=== PATIENT | female | born 1980 | race African-American/Black ===

== ENCOUNTER 2019-05-30 22:50 | Emergency (ER) | payer OTHER ==
[~2019-05-30] VITALS: Ht 160 cm; Wt 50.8 kg
[2019-05-30 22:50] VITALS: BP 138/83
[~2019-05-30 22:50] MED LIST: ALBUTEROL SULF8.5 GM INH
--- NOTE | 2019-05-30 22:50 | NUR ---
ED Nurse Note: Patient walked in to ED from home c/o SOB x1hr ago. As per EMT, albuterol HHN was given sea captain. Pt has hx of asthma. Stated that she has been using her inhaler but no relief. On O2 @4L via nc, 96%. Denies fever/ chill. Pt placed on wood scaler. ERMD at bedside.
--- NOTE | 2019-05-30 22:55 | NUR ---
ED Nurse Note: IV line established. Blood specimen collected and sent to lab.
--- NOTE | 2019-05-30 22:56 | Emergency Room Report ---
History of Present Illness General Chief Complaint: Asthma Source: Patient Present Illness HPI This is a 38-year-old female with a history of asthma with frequent exacerbation. She was just in the hospital last month for the same thing. She presents with complaint of asthma exacerbation shortness of breath. She said is been ongoing for last couple days but worse tonight. No relief with her inhaler. She does not smoke but states that people around her smokes a lot. Denies any fever chills. Cough is not productive in nature. No chest pain. EMS said she was very tight and in respiratory distress. They put her on albuterol through a nonrebreather and she felt better now. Worse with exertion. Better with rest. No nausea vomiting or diarrhea. Similar symptom in the past. Never been intubated before. Allergies: Coded Allergies: No Known Allergies (Unverified , 01/26/13) Patient History Past Medical History: see triage record, old chart reviewed, asthma Past Surgical History: other Pertinent Family History: none Social History: Denies: smoking Last Menstrual Period: NA Now: No Immunizations: other Reviewed Nursing Documentation: PMH: Agreed; PSxH: Agreed Nursing Documentation-PMH Past Medical History: No History, Except For Hx Cardiac Problems: No Hx Asthma: Yes Hx Cancer: No Hx Gastrointestinal Problems: No Hx Neurological Problems: No Review of Systems Eye: Denies: eye pain, blurred vision ENT: Denies: ear pain, nose congestion, throat swelling Respiratory: Reports: cough, shortness of breath, wheezing Cardiovascular: Denies: chest pain, palpitations Gastrointestinal: Denies: abdominal pain, diarrhea, nausea, vomiting Musculoskeletal: Denies: back pain, joint pain Skin: Denies: rash Neurological: Denies: headache, numbness Endocrine: Denies: increased thirst, increased urine Hematologic/Lymphatic: Denies: easy bruising All Other Systems: negative except mentioned in HPI Physical Exam Vital Signs Date Time Temp Pulse Resp B/P (MAP) Pulse Ox O2 Delivery O2 Flow Rate FiO2 05/30/19 22:48 98.4 130 24 138/83 (101) 96 Nasal Cannula 4.0 Vitals with tachycardia Sp02 EP Interpretation: reviewed, normal General Appearance: alert, moderate distress, thin Head: normocephalic, atraumatic Eyes: bilateral eye PERRL, bilateral eye EOMI ENT: hearing grossly normal, normal pharynx Neck: full range of motion, supple, no meningismus Respiratory: chest non-tender, normal breath sounds, respiratory distress, decreased breath sounds, wheezing Cardiovascular #1: regular rate, rhythm, no murmur, tachycardia Gastrointestinal: normal bowel sounds, non tender, no mass, no organomegaly, no bruit, non-distended Musculoskeletal: back normal, normal range of motion, gait/station normal Psychiatric: mood/affect normal Medical Decision Making Diagnostic Impression: Primary Impression: Asthma attack Qualified Codes: J45.21 - Mild intermittent asthma with (acute) exacerbation ER Course Patient with respiratory distress and asthma exacerbation. Better after breathing treatment. Labs unremarkable. No evidence of ACS, PE, dissection to name a few. Will discharge home. With her frequent exacerbation, advised her to avoid smoking and we will put her on a steroid inhaler also. EKG Diagnostic Results Rate: tachycardiac Rhythm: NSR ST Segments: other - nsst changes Rhythm Strip Diag. Results EP Interpretation: yes Rate: 100 Rhythm: NSR, no PVC's, no ectopy Chest X-Ray Diagnostic Results Chest X-Ray Diagnostic Results : Chest X-Ray Ordered: Yes # of Views/Limited/Complete: 1 View Indication: Shortness of Breath EP Interpretation: Yes Interpretation: no consolidation, no effusion, no pneumothorax, no acute cardiopulmonary disease Impression: No acute disease Electronically Signed by: Bandar Mullins MD Last Vital Signs Date Time Temp Pulse Resp B/P (MAP) Pulse Ox O2 Delivery O2 Flow Rate FiO2 05/30/19 22:48 98.4 130 24 138/83 (101) 96 Nasal Cannula 4.0 Status: improved Disposition: HOME, SELF-CARE Condition: Stable Scripts Fluticasone/Vilanterol (Breo Ellipta 100-25 Mcg INH) 1 Each Blst.w.dev 1 EACH IH BID, #1 EACH Prov: Bandar Mullins MD 05/30/19 Prednisone* (PREDNISONE*) 20 Mg Tablet 40 MG ORAL DAILY, #10 TAB Prov: Bandar Mullins MD 05/30/19 Albuterol Sulfate* (ALBUTEROL SULFATE MDI*) 8.5 Gm Hfa.aer.ad 2 PUFF INH Q4H PRN for cough/wheezing, #1 EA 0 Refills Prov: Bandar Mullins MD 05/30/19 Patient Instructions: Asthma, Adult Additional Instructions: Follow-up with your doctor in 7 days. Avoid second hand smoke. If symptoms worsen. Bandar Mullins MD May 30, 2019 22:56
[2019-05-30] MEDS ORDERED: Ipratropium 0.02% Inh Soln 2.5ml UD HHN ONE (23:00)
[2019-05-30] MEDS ORDERED: Albuterol ud Inhalation HHN ONE (23:00)
[2019-05-30] MEDS ORDERED: Solu-MEDROL 125mg Inj IVP ONE (23:00)
--- NOTE | 2019-05-30 23:00 | NUR ---
ED Nurse Note: RT at bedside for breathing tx.
--- NOTE | 2019-05-30 23:12 | NUR ---
ED Nurse Note: Xray done at bedside.
[2019-05-30 23:27] LABS: BASOPHILS % (AUTO) 1.6 % (0.0-2.0); EOSINOPHILS % (AUTO) 2.4 % (0.0-3.0); HEMATOCRIT 43.5 % (37.0-47.0); HEMOGLOBIN 14.8 G/DL (12.0-16.0); LYMPHOCYTES % (AUTO) 23.1 % (20.0-45.0); MEAN CORPUSCULAR VOLUME 93 FL (80-99); MONOCYTES % (AUTO) 8.2 % (1.0-10.0); NEUTROPHILS % (AUTO) 64.6 % (45.0-75.0); PLATELET COUNT 227 K/UL (150-450); RED CELL DISTRIBUTION WIDTH 12.3 % (11.6-14.8); WHITE BLOOD COUNT 12.7 K/UL (4.8-10.8)
--- NOTE | 2019-05-30 23:30 | NUR ---
ED Nurse Note: Urine specimen collected and sent to lab.
[2019-05-30 23:36] LABS: APPEARANCE,URINE CLEAR; BILIRUBIN, URINE NEGATIVE (NEGATIVE); COLOR,URINE PALE YELLOW; GLUCOSE, URINE (UA) NEGATIVE (NEGATIVE); KETONES,URINE NEGATIVE (NEGATIVE); LEUKOCYTE ESTERASE ,URINE NEGATIVE (NEGATIVE); NITRITE,URINE NEGATIVE (NEGATIVE); PH,URINE 5 (4.5-8.0); PROTEIN,URINE NEGATIVE (NEGATIVE); UROBILINOGEN,URINE 1 MG/DL (0.0-1.0)
[2019-05-30 23:38] LABS: ANION GAP 10 mmol/L (5-15); BLOOD UREA NITROGEN 18 mg/dL (7-18); CALCIUM 9.4 MG/DL (8.5-10.1); CARBON DIOXIDE 27 MMOL/L (21-32); CHLORIDE 104 MMOL/L (98-107); CREATININE 0.7 MG/DL (0.55-1.30); POTASSIUM 4.5 MMOL/L (3.5-5.1); SODIUM 141 MMOL/L (136-145)
[2019-05-30 23:49] LABS: ALANINE AMINOTRANSFERASE 28 U/L (12-78); ALBUMIN 3.4 G/DL (3.4-5.0); ALBUMIN/GLOBULIN RATIO 0.7 (1.0-2.7); ALKALINE PHOSPHATASE 58 U/L (46-116); ASPARTATE AMINO TRANSFERASE 32 U/L (15-37); BILIRUBIN,TOTAL 0.3 MG/DL (0.2-1.0)
[2019-05-30] MEDS ORDERED: PREDNISONE20 MG ORAL (23:58)
[2019-05-30] MEDS ORDERED: BREO ELLIPTA 11 EACH IH (23:58)
[2019-05-30] MEDS ORDERED: ALBUTEROL SULF8.5 GM INH (23:58)
[2019-05-31 00:06] VITALS: BP 124/96
--- NOTE | 2019-05-31 00:06 | NUR ---
ED Nurse Note: Pt cleared by ERMD for discharge. DC instructions/prescription was given and explained to pt and verbalized understanding of teachings. All medical deviecs such as ID band and IV line removed. Pt is AAO x4, ambulatory and left with all personal belongings. Pt will take the bus going home.
--- NOTE | 2019-05-31 10:15 | Diagnostic Imaging Report ---
Indication: Shortness of breath Technique: One view of the chest Comparison: 01/26/2013 Findings: Lungs and pleural spaces are clear. Heart size is normal. No significant change Impression: No acute process
== END 2019-05-31 00:06 | disposition home or self-care (01) ==
LOC: EDBD 22:50 → EMR 23:08
DX: J45.21 Mild intermittent asthma with (acute) exacerbation (principal)
CPT/HCPCS: 36415; 71045; 80053; 80307; 81003; 81025; 83880; 84484; 85025; 93005; 96365; 96375; J2930; J7030; Z7502; 99284

== ENCOUNTER 2020-02-19 03:51 | Emergency (ER) | payer OTHER ==
[~2020-02-19] VITALS: Ht 154.9 cm; Wt 52.2 kg
[~2020-02-19 03:51] MED LIST changes: +BREO ELLIPTA 11 EACH IH; +PREDNISONE20 MG ORAL
--- NOTE | 2020-02-19 03:56 | Emergency Room Report ---
History of Present Illness General Chief Complaint: Dyspnea/Respdistress Source: Patient Present Illness [facility] Disclaimer: Please note that this report is being documented using DRAGON technology. This can lead to erroneous entry secondary to incorrect interpretation by the dictating instrument. HPI: 39-year-old female with history of asthma presents for evaluation of shortness of breath. Symptoms present for the past 2 to 3 days. Reports progressive wheezing and tightness in her chest difficulty breathing that was acutely worse this evening. Has been using her albuterol inhaler with only minor relief. No recent steroid use. Ran out of her inhaler this evening. Tested negative for COVID-19 last week. Denies cough, congestion, fever, chills, sore throat, changes in sense of smell or taste. Denies chest pain, palpitations, nausea, vomiting, diarrhea. PMH: Asthma PSH: Reviewed Allergies: Denied Social Hx: Denied drug or alcohol abuse Allergies: Coded Allergies: No Known Allergies (Unverified , 01/26/13) COVID-19 Screening Contact w/high risk pt: Yes Experienced COVID-19 symptoms?: Yes COVID-19 Testing performed MANAGER OFFICE SERVICES: No Patient History Now: No Nursing Documentation-PMH Past Medical History: No History, Except For Hx Cardiac Problems: No Hx Asthma: Yes Hx Cancer: No Hx Gastrointestinal Problems: No Hx Neurological Problems: No Review of Systems All Other Systems: negative except mentioned in HPI Physical Exam Vital Signs Date Time Temp Pulse Resp B/P (MAP) Pulse Ox O2 Delivery O2 Flow Rate FiO2 02/19/20 03:51 97.3 91 21 126/89 (101) 100 Room Air General: Awake and alert, appears uncomfortable, speaking in 3-4 word sentences HEENT: NC/AT. EOMI. Cardiovascular: RRR. S1 and S2 normal. No murmur appreciated Resp: Tachypnea. Increased work of breathing. Reduced aeration bilaterally and inspiratory next Tory wheezes. Skin: Intact. No abrasions, laceration or rash over the exposed skin MSK: Normal tone and bulk. Moving all extremities. No obvious deformity. Neuro: Awake and alert. Mentating appropriately. Procedures Critical Care Time Critical Care Time Total critical care time: Approximately 31 minutes Due to a high probability of clinically significant, life threatening deterioration, the patient required the highest level of preparedness to intervene emergently and I personally spent this critical care time directly and personally managing the patient. This critical care time included obtaining a history, examining the patient, pulse oximetry, ordering and reviewing studies, ordering treatments, evaluating response to treatment and updating management plan as needed, frequent reassessment and discussion with other providers as well as arranging for ultimate disposition. This critical to care time was performed to assess and manage the high probability of life-threatening deterioration that could result in multiorgan failure. This critical care time is separate from the separately billable procedures and treating other patients. Medical Decision Making Diagnostic Impression: Primary Impression: Acute asthma exacerbation ER Course 39-year-old female with history of asthma presents for worsening shortness of breath. Patient's history most consistent with an acute asthma exacerbation. Placed in negative pressure room and continuous nebulizer treatment ordered. IV steroids given. No infiltrate or pneumothorax identified on chest x-ray. Feeling better after receiving breathing treatments and steroids. Wheezing resolved. Moving good air. No respiratory distress remains. Patient is stable for outpatient follow-up. Will refill inhalers and start on prednisone. Instructed to follow-up with PMD and return with new or worsening symptoms. She understands and agrees with this treatment plan. Chest X-Ray Diagnostic Results Chest X-Ray Diagnostic Results : Chest X-Ray Ordered: Yes # of Views/Limited/Complete: 1 View Indication: Shortness of Breath EP Interpretation: Yes Interpretation: no consolidation, no effusion, no pneumothorax, no acute cardiopulmonary disease Impression: No acute disease Electronically Signed by: Electronically signed by Dr. Abdiaziz Luis MD Last Vital Signs Date Time Temp Pulse Resp B/P (MAP) Pulse Ox O2 Delivery O2 Flow Rate FiO2 02/19/20 03:51 97.3 91 21 126/89 (101) 100 Room Air Disposition: HOME, SELF-CARE Condition: Improved Scripts Albuterol Sulfate (VENTOLIN HFA) 18 Gm Hfa.aer.ad 1 PUFF INH EVERY 6 HOURS, #18 GM 0 Refills Prov: Abdiaziz Luis MD 02/19/20 Fluticasone/Vilanterol (Breo Ellipta 100-25 Mcg INH) 1 Each Blst.w.dev 1 EACH IH BID, #1 EACH Prov: Abdiaziz Luis MD 02/19/20 Prednisone* (PREDNISONE*) 20 Mg Tablet 40 MG ORAL DAILY, #10 TAB Prov: Abdiaziz Luis MD 02/19/20 Abdaiziz Luis MD Feb 19, 2020 03:56
[2020-02-19] MEDS ORDERED: Solu-MEDROL 125mg Inj IVP ONE (04:00)
--- NOTE | 2020-02-19 04:00 | NUR ---
ED Nurse Note: Patient brought in by ambulance RA 66 from home with c/o SOB onset 2 days. Pt reports of wheezing and chest tightness that got worse last night. Pt has history of asthma. Pt is using inhaler at home. Pt denies CP, flu like s/sx, N&V, diarrhea. Pt is AAOX4 and ambulatory. Pt came in with lisha flow o2 satting 100%. HPI: 39-year-old female with history of asthma presents for evaluation of shortness of breath. Symptoms present for the past 2 to 3 days. Reports progressive wheezing and tightness in her chest difficulty breathing that was acutely worse this evening. Has been using her albuterol inhaler with only minor relief. No recent steroid use. Denies cough, congestion, fever, chills, sore throat, changes in sense of smell or taste. Denies chest pain, palpitations, nausea, vomiting, diarrhea. PT BROUGHT IN BY RA 68 FROM HOME CO SOB WITH WHEEZING X 2 DAYS. PT AAO X 4, 97% RA.
--- NOTE | 2020-02-19 04:01 | NUR ---
ED Nurse Note: ERMD at bedside
[2020-02-19] MEDS: Albuterol/Ipratropium 3ml neb HHN SCH ×3 (04:02→04:28)
--- NOTE | 2020-02-19 04:42 | NUR ---
ED Nurse Note: Breathing tx and xray done
[2020-02-19 04:43] VITALS: BP 126/89
[2020-02-19] MEDS ORDERED: PREDNISONE20 MG ORAL (04:45)
[2020-02-19] MEDS ORDERED: VENTOLIN HFA18 GM INH (04:45)
[2020-02-19] MEDS ORDERED: BREO ELLIPTA 11 EACH IH (04:45)
--- NOTE | 2020-02-19 05:00 | NUR ---
ER DISCHARGE NOTE: Patient is cleared to be discharged per ERMD, pt is aox4, on room air, with stable vital signs. pt was given dc and prescription instructions, pt was able to verbalize understanding, pt id band and iv site removed without complications. pt is able to ambulate with steady gait. pt took all belongings.
[2020-02-19 05:01] VITALS: BP 127/78
--- NOTE | 2020-02-19 17:33 | Diagnostic Imaging Report ---
Indication: Shortness of breath Technique: One view of the chest Comparison: 05/30/2019 Findings: Lungs and pleural spaces are clear. Heart size is normal. No significant change Impression: No acute process
== END 2020-02-19 05:02 | disposition home or self-care (01) ==
LOC: EDBD 03:51 → EMR 04:10
DX: J45.901 Unspecified asthma with (acute) exacerbation (principal); Z79.899 Other long term (current) drug therapy
CPT/HCPCS: 71045; 94640; 96374; J2930; Z7502; 99291; J7620

== ENCOUNTER 2020-05-15 21:59 | Emergency (ER) | payer OTHER ==
[~2020-05-15] VITALS: Ht 160 cm; Wt 52.2 kg
[~2020-05-15 21:59] MED LIST changes: +VENTOLIN HFA18 GM INH
[2020-05-15] MEDS ORDERED: Ipratropium 0.02% Inh Soln 2.5ml UD HHN ONE (22:15)
[2020-05-15] MEDS ORDERED: Albuterol ud Inhalation HHN ONE (22:15)
--- NOTE | 2020-05-15 22:18 | Emergency Room Report ---
History of Present Illness General Chief Complaint: Dyspnea/Respdistress Source: Patient Present Illness HPI This is a 39-year-old female with a history of persistent asthma. Poorly controlled. She goes to an inhaler every 2 weeks. She presents with chief complaint of asthma exacerbation shortness of breath. Onset today. She ran out of her inhaler today. No fever chills. Worse with exertion. Better with rest. She called [address] Aircraft Avionics Technician gave her albuterol and made her feel better. Denies any previous intubation. Last steroid use was few weeks ago. She says she goes to the hospital frequently. Denies any productive cough. Allergies: Coded Allergies: No Known Allergies (Unverified , 01/26/13) COVID-19 Screening Contact w/high risk pt: Yes Experienced COVID-19 symptoms?: Yes COVID-19 Testing performed MANAGER FINE: No Patient History Past Medical History: see triage record, old chart reviewed, asthma Past Surgical History: none Pertinent Family History: none Social History: Denies: smoking Now: No Immunizations: other Reviewed Nursing Documentation: PMH: Agreed; PSxH: Agreed Nursing Documentation-PMH Hx Cardiac Problems: No Hx Asthma: Yes Hx Cancer: No Hx Gastrointestinal Problems: No Hx Neurological Problems: No Review of Systems Eye: Denies: eye pain, blurred vision ENT: Denies: ear pain, nose congestion, throat swelling Respiratory: Reports: cough, shortness of breath, wheezing Cardiovascular: Denies: chest pain, palpitations Gastrointestinal: Denies: abdominal pain, diarrhea, nausea, vomiting Musculoskeletal: Denies: back pain, joint pain Skin: Denies: rash Neurological: Denies: headache, numbness Endocrine: Denies: increased thirst, increased urine Hematologic/Lymphatic: Denies: easy bruising All Other Systems: negative except mentioned in HPI Physical Exam Vital Signs Date Time Temp Pulse Resp B/P (MAP) Pulse Ox O2 Delivery O2 Flow Rate FiO2 05/15/20 22:00 98.2 83 18 185/99 (127) 98 Room Air Sp02 EP Interpretation: reviewed, normal General Appearance: well appearing, no apparent distress, alert Head: normocephalic, atraumatic Eyes: bilateral eye PERRL, bilateral eye EOMI ENT: hearing grossly normal, normal pharynx Neck: full range of motion, supple, no meningismus Respiratory: chest non-tender, normal breath sounds, decreased breath sounds, accessory muscle use Cardiovascular #1: regular rate, rhythm, no murmur Gastrointestinal: normal bowel sounds, non tender, no mass, no organomegaly, no bruit, non-distended Musculoskeletal: back normal, normal range of motion, gait/station normal Psychiatric: mood/affect normal Medical Decision Making Diagnostic Impression: Primary Impression: Acute asthma exacerbation Qualified Codes: J45.21 - Mild intermittent asthma with (acute) exacerbation ER Course This patient presents with asthma exacerbation. This is a frequent occurrence. She says she does not smoke but people around her smokes. After breathing treatment and steroids lungs are clear. Will discharge home. I will add a steroid inhaler to her regimen. Last Vital Signs Date Time Temp Pulse Resp B/P (MAP) Pulse Ox O2 Delivery O2 Flow Rate FiO2 05/15/20 22:00 98.2 83 18 185/99 (127) 98 Room Air Status: improved Disposition: HOME, SELF-CARE Condition: Stable Scripts Fluticasone/Vilanterol (Breo Ellipta 200-25 Mcg INH) 1 Each Blst.w.dev 1 EACH IH BID, #1 UNIT Prov: Bandar Mullins MD 05/15/20 Albuterol Sulfate* (Albuterol Sulfate Hfa*) 8.5 Gm Hfa.aer.ad 2 PUFF INH Q4H, #1 INH Prov: Bandar Mullins MD 05/15/20 Prednisone* (PREDNISONE*) 20 Mg Tablet 40 MG ORAL DAILY, #8 TAB Prov: Bandar Mullins MD 05/15/20 Additional Instructions: Follow-up with your doctor in 7 days but return if symptoms worsen. Bandar Mullins MD May 15, 2020 22:18
[2020-05-15] MEDS ORDERED: ALBUTEROL SULF8.5 G1 INH (22:58)
[2020-05-15] MEDS ORDERED: BREO ELLIPTA 21 EACH IH (22:58)
[2020-05-15] MEDS ORDERED: PREDNISONE20 MG ORAL (22:58)
[2020-05-15 23:12] VITALS: BP 156/86
--- NOTE | 2020-05-15 23:12 | NUR ---
ER DISCHARGE NOTE: Patient is cleared to be discharged per ERMD, pt is aox4, on room air, with stable vital signs. pt was given dc and prescription instructions, pt was able to verbalize understanding, pt id band removed without complications. pt is able to ambulate with steady gait. pt took all belongings.
== END 2020-05-15 23:12 | disposition home or self-care (01) ==
LOC: EDBD 21:59 → EDUNIT# 21:59 → EMR 22:15
DX: J45.21 Mild intermittent asthma with (acute) exacerbation (principal); Z79.899 Other long term (current) drug therapy
CPT/HCPCS: 94640; J7512; Z7502; 99283